=== PATIENT | male | born 1975 ===

== ENCOUNTER → 2017-05-14 | Day surgery (SDC) | payer OTHER ==
[~2017-05-14] MED LIST: DUI500 PO; PERCOCET 5-3251 EACH PO; XARELTO10 MG PO
== END | disposition home or self-care (01) ==
LOC: ADM 05-13 12:45 → CIR.AMB 06:32
DX: S76.111A Strain of right quadriceps muscle, fascia and tendon, initial encounter (principal); M25.061 Hemarthrosis, right knee; S82.091A Other fracture of right patella, initial encounter for closed fracture